=== PATIENT | female | born 1995 | race Hispanic/Latino ===

== ENCOUNTER 2024-08-16 20:59 | Emergency (ER) | payer SELFPAY ==
[~2024-08-16] VITALS: Ht 162.6 cm; Wt 127.0 kg
[2024-08-16] MEDS: acetaMINOPHEN/coDEINE 120/12MG 5ML PO STA (21:38)
[2024-08-16 21:51] LABS: SARS-CoV-2, RNA, NAAT NEGATIVE SARS CoV-2 (NEGATIVE)
[2024-08-16 21:52] LABS: RAPID GROUP A STREP positive (NEGATIVE)
[2024-08-16 22:00] LABS: INFLUENZA TYPE A Negative For Type A (NEGATIVE); INFLUENZA TYPE B Negative For Type B (NEGATIVE)
[2024-08-16] MEDS ORDERED: AMOX500C2 PO (22:03)
[2024-08-16 22:05] VITALS: BP 114/59; PULSE 99; RESP 18; TEMP 98.9; O2SAT 98
== END 2024-08-16 22:29 | disposition home or self-care (01) ==
LOC: EDH 20:59
DX: J02.0 Streptococcal pharyngitis (principal); Z20.822 Contact with and (suspected) exposure to COVID-19; E66.9 Obesity, unspecified; Z98.890 Other specified postprocedural states; Z68.30 Body mass index [BMI] 30.0-30.9, adult
CPT/HCPCS: 81025; 87635; 87804; 87880